=== PATIENT | female | born 1980 | race Caucasian/White ===

== ENCOUNTER 2024-05-23 19:40 | Inpatient (IN) | payer BC, OTHER ==
[2024-05-23] MEDS ORDERED: ACETAMINOPHEN INJECTION 100 ML ONE (21:41)
[2024-05-23] MEDS ORDERED: ONDANSETRON 4 MG/2 ML VIAL ONE (21:41)
[2024-05-23] MEDS: ACETAMINOPHEN 1000 MG/100 ML BAG IVPB ONE (22:08)
[2024-05-23] MEDS: LACTATED RINGERS SOLUTION 1000 ML INFUS.BAG IV ONE (22:09)
[2024-05-23] MEDS: ONDANSETRON 4 MG/2 ML VIAL IVPUSH ONE (22:09)
[2024-05-23 22:13] LABS: BASO % 1.4 % (0-2.0); EOS % 4.5 % (0-4.5); HEMATOCRIT 37.6 % (32.4-45.2); HEMOGLOBIN 12.2 GM/dL (10.7-15.3); LYMPH % 19.6 % (8-40); MCH 24.2 pg (25.7-33.7); MCHC 32.4 g/dl (32.0-36.0); MEAN CELL VOLUME 74.7 fl (80-96); MEAN PLT VOLUME 6.7 fl (7.5-11.1); MONO % 13.4 % (3.8-10.2); NEUT % 61.1 % (42.8-82.8); PLATELET COUNT 346 10^3/uL (134-434); RBC 5.03 M/mm3 (3.60-5.2); RDW 17.1 % (11.6-15.6); WHITE BLOOD COUNT 9.6 K/mm3 (4.0-10.0)
[2024-05-23 22:20] LABS: INR 1.13 (0.83-1.09); PROTHROMBIN TIME (PATIENT) 12.7 SEC (9.7-13.0)
[2024-05-23 22:23] LABS: ACTIVATED PTT 27.4 SECONDS (25.2-36.5); POTASSIUM 3.8 mmol/L (3.5-5.1)
[2024-05-23 22:26] LABS: ALBUMIN 3.8 g/dl (3.4-5.0); BLOOD UREA NITROGEN 7.8 mg/dL (7-18)
[2024-05-23 22:28] LABS: CREATININE 0.5 mg/dL (0.55-1.3)
[2024-05-23 22:30] LABS: BILIRUBIN,TOTAL 0.6 mg/dL (0.2-1); TOT PROT 7.9 g/dl (6.4-8.2)
[2024-05-23] MEDS: PIPERACILLIN/TAZOB 4.5 GM 4.5 GM in DEXTROSE 5%-WATER 100 ML IVPB ONE (23:55)
[2024-05-24] MEDS ORDERED: KETOROLAC TROMETHAMINE 15 MG/ML VIAL ONE (00:05)
[2024-05-24] MEDS: KETOROLAC TROMETHAMINE 15 MG/ML VIAL IVPUSH ONE (00:07)
[2024-05-24] MEDS: CEFOXITIN SODIUM 2 GM in DEXTROSE 5%-WATER - 100 ML IVPB ONE (00:36)
[2024-05-24] MEDS: LACTATED RINGERS SOLUTION 1,000 ML/1,000 ML INFUS.BAG IV SCH ×2 (00:37→19:39)
[2024-05-24] MEDS ORDERED: ACETAMINOPHEN 1000 MG/100 ML BAG IVPB PRN (02:29)
[2024-05-24] MEDS ORDERED: MORPHINE SULFATE 2 MG/ML SYRINGE IVPUSH PRN (02:29)
[2024-05-24] MEDS: SODIUM CHLORIDE 1,000 ML IV SCH (04:22)
[2024-05-24] MEDS ORDERED: AMPICILLIN NA/SULBACTAM NA 1.5 GM VIAL ONE ×2 (05:11→09:24)
[2024-05-24] MEDS: AMPICILLIN NA/SULBACTAM NA 1.5 GM in SODIUM CHLORIDE 100 ML IVPB SCH (05:34)
[2024-05-24] MEDS ORDERED: AMPICILLIN NA/SULBACTAM NA 1.5 GM in SODIUM CHLORIDE 100 ML IVPB SCH (06:00)
[2024-05-24] MEDS ORDERED: ONDANSETRON 4 MG/2 ML VIAL IVPUSH PRN ×3 (07:00→16:56)
[2024-05-24 07:38] LABS: HEMATOCRIT 31.3 % (32.4-45.2); HEMOGLOBIN 10.1 GM/dL (10.7-15.3); MCH 24.1 pg (25.7-33.7); MCHC 32.2 g/dl (32.0-36.0); MEAN PLT VOLUME 7.1 fl (7.5-11.1); PLATELET COUNT 273 10^3/uL (134-434); RBC 4.18 M/mm3 (3.60-5.2); RDW 16.7 % (11.6-15.6); WHITE BLOOD COUNT 7.2 K/mm3 (4.0-10.0)
[2024-05-24 08:07] LABS: POTASSIUM 3.9 mmol/L (3.5-5.1)
[2024-05-24 08:21] LABS: BLOOD UREA NITROGEN 7.7 mg/dL (7-18); CALCIUM 8.2 mg/dL (8.5-10.1); MAGNESIUM 1.9 mg/dL (1.8-2.4)
[2024-05-24 08:23] LABS: CREATININE 0.5 mg/dL (0.55-1.3)
[2024-05-24 08:24] LABS: PHOSPHOROUS 3.3 mg/dL (2.5-4.9)
[2024-05-24 08:25] LABS: BILIRUBIN,TOTAL 0.6 mg/dL (0.2-1)
[2024-05-24 08:26] LABS: ALBUMIN 2.8 g/dl (3.4-5.0); TOT PROT 5.9 g/dl (6.4-8.2)
[2024-05-24] MEDS ORDERED: VANCOMYCIN 1,000 MG in DEXTROSE 5%-WATER - 250 ML IVPB SCH (10:00)
[2024-05-24] MEDS ORDERED: LIDOCAINE HCL/PF 2% SDV 5ML VIAL ONE (13:35)
[2024-05-24] MEDS ORDERED: SUCCINYLCHOLINE CHLORIDE 200 MG/10 ML SYRINGE ONE (13:36)
[2024-05-24] MEDS ORDERED: MIDAZOLAM HCL 2 MG/2 ML SINGLE DOSE VIAL ONE (13:36)
[2024-05-24] MEDS ORDERED: ROCURONIUM BROMIDE 50 MG/5 ML SYRINGE ONE (13:36)
[2024-05-24] MEDS ORDERED: PROPOFOL 20 ML ONE (13:36)
[2024-05-24] MEDS ORDERED: HEPARIN NA (PORCINE) 5,000 UNITS/ML 1ML VIAL ONE (13:47)
[2024-05-24] MEDS ORDERED: CEFOXITIN SODIUM 2 GM IVPB ONE (13:47)
[2024-05-24] MEDS: cefOXitin SODIUM 2 GM VIAL (RESTRICTED TO ID) IVPB ONE (15:38)
[2024-05-24] MEDS ORDERED: ONDANSETRON 4 MG/2 ML VIAL ONE (15:38)
[2024-05-24] MEDS ORDERED: DEXAMETHASONE SOD PHOSPHATE 4 MG/1 ML VIAL ONE (15:38)
[2024-05-24] MEDS ORDERED: KETOROLAC TROMETHAMINE 30 MG/1 ML VIAL ONE (15:38)
[2024-05-24] MEDS: BUPIVACAINE HCL/PF 0.25% (2.5MG/ML) 10 ML VIAL IJ ONE (16:08)
[2024-05-24] MEDS ORDERED: PROMETHAZINE HCL 25 MG/1 ML VIAL IVPB PRN (16:50)
[2024-05-24] MEDS ORDERED: oxyCODONE HCL 5 MG TABLET PO PRN ×2 (16:56)
[2024-05-24] MEDS ORDERED: ACETAMINOPHEN INJECTION 100 ML ONE (17:11)
[2024-05-24] MEDS: ACETAMINOPHEN 1000 MG/100 ML BAG IVPB ONE (17:13)
[2024-05-24] MEDS: LACTATED RINGERS SOLUTION 1,000 ML IV SCH (17:14)
[2024-05-24] MEDS: PIPERACILLIN/TAZOB 3.375 GM 3.375 GM in DEXTROSE 5%-WATER - 50 ML IVPB SCH (17:46)
[2024-05-24] MEDS ORDERED: PIPERACILLIN/TAZOB 3.375 GM 3.375 GM in DEXTROSE 5%-WATER - 50 ML IVPB SCH (18:00)
[2024-05-24 20:02] VITALS: RESP 18
[2024-05-24] MEDS: ACETAMINOPHEN 1000 MG/100 ML BAG IVPB SCH (22:48)
[2024-05-25 03:05] VITALS: BMI 25.0
[2024-05-25 10:07] LABS: BASO % 0.1 % (0-2.0); HEMATOCRIT 33.3 % (32.4-45.2); HEMOGLOBIN 10.7 GM/dL (10.7-15.3); LYMPH % 6.9 % (8-40); MCHC 32.3 g/dl (32.0-36.0); MEAN CELL VOLUME 74.3 fl (80-96); MEAN PLT VOLUME 7.2 fl (7.5-11.1); MONO % 5.1 % (3.8-10.2); NEUT % 87.9 % (42.8-82.8); PLATELET COUNT 301 10^3/uL (134-434); RBC 4.48 M/mm3 (3.60-5.2); RDW 16.7 % (11.6-15.6); WHITE BLOOD COUNT 10.2 K/mm3 (4.0-10.0)
[2024-05-25 10:41] LABS: CALCIUM 8.5 mg/dL (8.5-10.1)
[2024-05-25 10:42] LABS: ALBUMIN 2.5 g/dl (3.4-5.0); BLOOD UREA NITROGEN 11.5 mg/dL (7-18); MAGNESIUM 1.8 mg/dL (1.8-2.4)
[2024-05-25 10:45] LABS: BILIRUBIN,TOTAL 0.5 mg/dL (0.2-1); CREATININE 0.7 mg/dL (0.55-1.3)
[2024-05-25 10:46] LABS: TOT PROT 5.5 g/dl (6.4-8.2)
[2024-05-25 13:27] VITALS: BP 98/72; PULSE 68; TEMP 98.8
== END 2024-05-25 14:11 | disposition home or self-care (01) | DRG 419 ==
LOC: JER 19:40 → JERBED 23:35 → J8W 05-24 19:56
PROVIDERS: ADMIT Internal Medicine; ATTEND Nurse Practitioner Acute Care
PROC: 0FT44ZZ Resection of Gallbladder, Percutaneous Endoscopic Approach (ICD-10-PCS; principal; 2024-05-24 14:00)
DX: K81.0 Acute cholecystitis (principal); E03.9 Hypothyroidism, unspecified; D50.9 Iron deficiency anemia, unspecified
CPT/HCPCS: 36415; 74177-TC; 76705-TC; 80053; 83690; 83735; 84100; 84439; 84443; 84703; 85025; 85027; 85610; 85730; 86850; 86900; 86901; 88304-TC; 93005; 93010; 94760; 99285-25; J0131; J1644